=== PATIENT | male | born 1990 | race Caucasian/White ===

== ENCOUNTER 2017-03-08 20:06 | Emergency (ER) | payer OTHER ==
[~2017-03-08] VITALS: Wt 83.9 kg
[~2017-03-08 20:06] MED LIST: AMOXICILLIN500 MG PO; BACTRIM DS 8001 TA1 PO; CLINDAMYCIN HC300 MG PO; KEFLEX500 MG PO; MEDROL DOSEPAK4 MG PO; MOTRIN800 MG PO; MS CONTIN15 MG PO; MS CONTIN30 MG PO; NKHM; TRAMADOL HCL50 MG PO; TRIMOX500 MG PO; ULTRAM50 MG PO; VALIUM2 MG PO; VICODIN 5/500 505 MG PO; Vibra-Tab100 MG PO; ZITHROMAX250 MG PO
[2017-03-08 20:33] LABS: BASO % 0.2 % (0.0-1.0); EOS # 0.1 10*3/uL (0.0-0.4); HEMATOCRIT 39.2 % (42.0-52.0); HEMOGLOBIN 13.6 g/dl (14.0-18.0); LYMPH # 1.4 10*3/uL (1.3-4.4); LYMPH % 22.9 % (27.0-41.0); MEAN CELL VOLUME 86.2 fl (80.0-94.0); MEAN CORPUSCULAR HGB 29.9 pg (27.0-31.0); MEAN CORPUSCULAR HGB CONC 34.7 g/dl (33.0-37.0); MEAN PLATELET VOLUME 8.5 fl (9.6-12.3); MONO # 0.4 10*3/uL (0.1-1.0); MONO % 6.8 % (3.0-9.0); NEUT # 4.2 10*3/uL (2.3-7.9); NEUT % 68.9 % (47.0-73.0); PLATELET COUNT AUTOMATED 176 10*3/uL (130-400); RED BLOOD COUNT 4.55 10*6/uL (4.50-5.90); RED CELL DISTRI WIDTH 13.2 % (0-14.5); WHITE BLOOD COUNT 6.1 10*3/uL (4.8-10.8)
[2017-03-08 20:46] LABS: BILIRUBIN NEGATIVE (NEGATIVE); BLOOD NEGATIVE (NEGATIVE); CLARITY SL CLOUDY (CLEAR); COLOR YELLOW (YELLOW); GLUCOSE NEGATIVE (NEGATIVE); KETONE NEGATIVE (NEGATIVE); LEUKO ESTERASE NEGATIVE (NEGATIVE); NITRITE NEGATIVE (NEGATIVE); PROTEIN NEGATIVE (NEGATIVE); SPECIFIC GRAVITY 1.025 (1.005-1.030); UROBILINOGEN 0.2 E.U./dl (0.2-1.0)
[2017-03-08 20:51] LABS: ALBUMIN 3.8 gm/dl (3.1-4.5); ALKALINE PHOSPHATASE 117 U/L (45-117); BILIRUBIN, TOTAL 0.4 mg/dl (0.2-1.0); BUN 14 mg/dl (7-24); CARBON DIOXIDE 27 mmol/L (21-32); CHLORIDE 102 mmol/L (98-107); EST GLOM FILT AFRICAN AMERICAN > 60 ml/min; GLUCOSE 91 mg/dL (65-99); SGOT/AST 17 IU/L (3-35); SGPT/ALT 26 U/L (12-78); SODIUM 135 mmol/L (136-145); TOTAL PROTEIN 8.6 gm/dL (6.4-8.2)
[2017-03-08 20:54] LABS: BACTERIA TRACE; EPITHELIAL CELLS 0-2; HYALINE CAST 0-2; RBC 0-2 rbc/hpf (0-2)
[2017-03-08 20:55] LABS: URINE REFLEX COMMENT NO (NO)
[2017-03-08] MEDS ORDERED: Motrin,Rufen800 MG PO (22:47)
[2017-03-08] MEDS ORDERED: CYCLOBENZAPRINE5 M3 PO (22:47)
== END 2017-03-08 23:02 | disposition home or self-care (01) ==
LOC: ED 20:06
PROVIDERS: Physician Assistant
DX: R10.30 Lower abdominal pain, unspecified (principal); F17.200 Nicotine dependence, unspecified, uncomplicated

== ENCOUNTER 2017-10-17 16:53 | Inpatient (IN) | payer OTHER ==
[~2017-10-17] VITALS: Ht 170.1 cm; Wt 89.0 kg
[~2017-10-17 16:53] MED LIST changes: +CYCLOBENZAPRINE5 M3 PO; +Motrin,Rufen800 MG PO
[2017-10-17 16:54] VITALS: BP 163/77
[2017-10-17 17:08] LABS: BILIRUBIN NEGATIVE (NEGATIVE); BLOOD TRACE-INTACT (NEGATIVE); CLARITY CLEAR (CLEAR); COLOR YELLOW (YELLOW); GLUCOSE NEGATIVE (NEGATIVE); KETONE NEGATIVE (NEGATIVE); LEUKO ESTERASE NEGATIVE (NEGATIVE); NITRITE NEGATIVE (NEGATIVE); SPECIFIC GRAVITY 1.025 (1.005-1.030); UROBILINOGEN 0.2 E.U./dl (0.2-1.0)
[2017-10-17 17:17] LABS: URINE AMPHETAMINES > 1000 (1000ng/ml); URINE BARBITURATES < 200 (200ng/ml); URINE BENZODIAZEPINES < 200 (200ng/ml); URINE CANNABINOIDS (THC) > 50 (50ng/ml); URINE COCAINE > 300 (300ng/ml); URINE METHADONE < 300 (300ng/ml); URINE OPIATES > 300 (300ng/ml)
[2017-10-17 17:20] LABS: URINE PHENCYCLIDINE < 25 (25ng/ml)
[2017-10-17 17:21] LABS: BACTERIA 1+; EPITHELIAL CELLS 0-2; RBC 0-2 rbc/hpf (0-2); WBC 0-2 wbc/hpf (0-5)
[2017-10-17 17:22] LABS: MUCOUS TRACE
[2017-10-17 17:26] LABS: BASO % 0.2 % (0.0-1.0); EOS % 0.8 % (1.0-4.0); HEMATOCRIT 42.6 % (42.0-52.0); HEMOGLOBIN 14.2 g/dl (14.0-18.0); LYMPH # 1.1 10*3/uL (1.3-4.4); LYMPH % 22.5 % (27.0-41.0); MEAN CELL VOLUME 89.7 fl (80.0-94.0); MEAN CORPUSCULAR HGB 29.9 pg (27.0-31.0); MEAN CORPUSCULAR HGB CONC 33.3 g/dl (33.0-37.0); MEAN PLATELET VOLUME 9.1 fl (9.6-12.3); MONO # 0.4 10*3/uL (0.1-1.0); MONO % 8.3 % (3.0-9.0); NEUT # 3.4 10*3/uL (2.3-7.9); NEUT % 67.8 % (47.0-73.0); PLATELET COUNT AUTOMATED 151 10*3/uL (130-400); RED BLOOD COUNT 4.75 10*6/uL (4.50-5.90); RED CELL DISTRI WIDTH 13.5 % (0-14.5); WHITE BLOOD COUNT 4.9 10*3/uL (4.8-10.8)
[2017-10-17 17:35] VITALS: BP 142/79
[2017-10-17 17:41] LABS: ACETAMINOPHEN (TYLENOL) < 2.0 ug/ml (10-30); ALBUMIN 3.8 gm/dl (3.1-4.5); ALKALINE PHOSPHATASE 104 U/L (45-117); BUN 10 mg/dl (7-24); CHLORIDE 101 mmol/L (98-107); CREATININE 1.14 mg/dL (0.70-1.30); ETHYL ALCOHOL < 3.0 mg/dl (<3); POTASSIUM 3.7 mmol/L (3.5-5.1); SGOT/AST 18 IU/L (3-35); SGPT/ALT 25 U/L (12-78); SODIUM 137 mmol/L (136-145); TOTAL PROTEIN 8.8 gm/dL (6.4-8.2)
[2017-10-17 20:27] VITALS: BP 164/76
[2017-10-18 00:49] VITALS: BP 148/86
[2017-10-18 04:01] VITALS: BP 146/82
== END 2017-10-18 07:51 | disposition left against medical advice (07) | DRG 894 ==
LOC: ED 16:53 → 4E 17:19 → EDHOLD 17:19 → 4E 17:41
PROVIDERS: Internal Medicine Hospice and Palliative Medicine; Nurse Practitioner Family
DX: F11.23 Opioid dependence with withdrawal (principal); B18.2 Chronic viral hepatitis C; F13.239 Sedative, hypnotic or anxiolytic dependence with withdrawal, unspecified; D72.810 Lymphocytopenia; F41.1 Generalized anxiety disorder; R00.0 Tachycardia, unspecified; F17.200 Nicotine dependence, unspecified, uncomplicated; F14.10 Cocaine abuse, uncomplicated; F12.10 Cannabis abuse, uncomplicated; F15.10 Other stimulant abuse, uncomplicated; Z53.21 Procedure and treatment not carried out due to patient leaving prior to being seen by health care provider; Z71.6 Tobacco abuse counseling

== ENCOUNTER 2017-11-18 13:15 | Inpatient (IN) | payer OTHER ==
[~2017-11-18] VITALS: Ht 152.4 cm; Wt 80.5 kg
[2017-11-18 14:10] VITALS: BP 135/77
[2017-11-18 14:15] VITALS: BP 135/77
[2017-11-18 16:00] VITALS: BP 136/73
[2017-11-18 16:08] LABS: BILIRUBIN 1+ (NEGATIVE); BLOOD NEGATIVE (NEGATIVE); CLARITY CLEAR (CLEAR); COLOR YELLOW (YELLOW); GLUCOSE NEGATIVE (NEGATIVE); KETONE TRACE (NEGATIVE); LEUKO ESTERASE NEGATIVE (NEGATIVE); NITRITE NEGATIVE (NEGATIVE); SPECIFIC GRAVITY 1.025 (1.005-1.030)
[2017-11-18 16:21] LABS: BACTERIA TRACE; MUCOUS 1+; RBC 0-2 rbc/hpf (0-2)
[2017-11-18 16:31] LABS: URINE AMPHETAMINES < 1000 (1000ng/ml); URINE BARBITURATES > 200 (200ng/ml); URINE BENZODIAZEPINES < 200 (200ng/ml); URINE CANNABINOIDS (THC) < 50 (50ng/ml); URINE COCAINE > 300 (300ng/ml); URINE METHADONE < 300 (300ng/ml); URINE OPIATES < 300 (300ng/ml)
[2017-11-18 16:37] LABS: URINE PHENCYCLIDINE < 25 (25ng/ml)
[2017-11-18 19:23] LABS: BASO % 0.3 % (0.0-1.0); EOS % 0.5 % (1.0-4.0); HEMOGLOBIN 12.7 g/dl (14.0-18.0); LYMPH # 1.3 10*3/uL (1.3-4.4); LYMPH % 16.7 % (27.0-41.0); MEAN CELL VOLUME 86.8 fl (80.0-94.0); MEAN CORPUSCULAR HGB CONC 33.4 g/dl (33.0-37.0); MEAN PLATELET VOLUME 9.3 fl (9.6-12.3); MONO # 0.5 10*3/uL (0.1-1.0); MONO % 6.4 % (3.0-9.0); NEUT # 5.9 10*3/uL (2.3-7.9); NEUT % 75.7 % (47.0-73.0); PLATELET COUNT AUTOMATED 157 10*3/uL (130-400); RED BLOOD COUNT 4.38 10*6/uL (4.50-5.90); RED CELL DISTRI WIDTH 13.8 % (0-14.5); WHITE BLOOD COUNT 7.8 10*3/uL (4.8-10.8)
[2017-11-18 19:32] LABS: INTERNATIONAL NORM RATIO 1.1 (2.0-3.5)
[2017-11-18 19:39] LABS: ALBUMIN 3.1 gm/dl (3.1-4.5); ALKALINE PHOSPHATASE 124 U/L (45-117); BUN 9 mg/dl (7-24); CHLORIDE 103 mmol/L (98-107); CREATININE 1.05 mg/dL (0.70-1.30); ETHYL ALCOHOL < 3.0 mg/dl (<3); POTASSIUM 3.6 mmol/L (3.5-5.1); SGOT/AST 10 IU/L (3-35); SGPT/ALT 25 U/L (12-78); SODIUM 137 mmol/L (136-145); TOTAL PROTEIN 7.7 gm/dL (6.4-8.2)
[2017-11-18 20:00] VITALS: BP 140/67
[2017-11-19] VITALS (8 sets, daily range): BP systolic 97–140; BP diastolic 49–78
== END 2017-11-19 19:01 | disposition left against medical advice (07) | DRG 603 ==
LOC: 5E 13:15
PROVIDERS: Student in an Organized Health Care Education/Training Program
PROC: 0H9NXZZ Drainage of Left Foot Skin, External Approach (ICD-10-PCS; principal; 2017-11-19)
DX: L03.116 Cellulitis of left lower limb (principal); B19.20 Unspecified viral hepatitis C without hepatic coma; L02.612 Cutaneous abscess of left foot; F11.23 Opioid dependence with withdrawal; F13.239 Sedative, hypnotic or anxiolytic dependence with withdrawal, unspecified; F17.210 Nicotine dependence, cigarettes, uncomplicated; F41.1 Generalized anxiety disorder; D64.9 Anemia, unspecified; D72.810 Lymphocytopenia; R73.9 Hyperglycemia, unspecified; F12.10 Cannabis abuse, uncomplicated; F14.10 Cocaine abuse, uncomplicated; Z53.21 Procedure and treatment not carried out due to patient leaving prior to being seen by health care provider; Z71.6 Tobacco abuse counseling

== ENCOUNTER 2017-12-21 07:18 | Emergency (ER) | payer OTHER ==
[~2017-12-21] VITALS: Wt 84.8 kg
== END 2017-12-21 08:00 | disposition left against medical advice (07) ==
LOC: ED 07:18
DX: R07.81 Pleurodynia (principal); F41.9 Anxiety disorder, unspecified; R73.9 Hyperglycemia, unspecified; F41.1 Generalized anxiety disorder; F17.200 Nicotine dependence, unspecified, uncomplicated

== ENCOUNTER 2018-01-10 20:39 | Inpatient (IN) | payer OTHER ==
[~2018-01-10] VITALS: Ht 167.6 cm; Wt 83.9 kg
--- NOTE | ~2018-01-10 | PR ---
[place], [place] PROGRESS NOTE NAME: JD LANGE UNIT #: [id number] ROOM: 403 DOCTOR: LAINEY WADE,OCTOBER BIRTHDATE: [birth year] DOS: SUBJECTIVE: The patient is a 27-year-old male who is being followed for bilateral arm abscess due to IV drug abuse. The one abscess on his left arm drained spontaneously and cultures have grown group B strep. The right arm still has not drained. He is being followed by Dr. Viera with surgery. His blood cultures remained sterile. He was on oral antibiotics as an outpatient and failed oral antibiotics with doxycycline and Bactrim, a low-grade temperature up to 99.4, otherwise afebrile. States his arms feel better, is having less pain. No nausea or vomiting, no diarrhea. No rash or itch. No cough or shortness of breath. No shaking chills. No other new labs today. Cultures as reviewed above. OBJECTIVE: VITAL SIGNS: Temperature 98.5, pulse 65, respirations 16, BP 133/70. Vancomycin trough 7.5. GENERAL: A 27-year-old male, in no acute distress. HEENT: Normocephalic, no thrush. LUNGS: Clear to auscultation bilaterally. Respirations even and unlabored. HEART: Regular rhythm. No murmur appreciated. ABDOMEN: Soft, nondistended. EXTREMITIES: No lower extremity edema or deformity. Left upper extremity, a small amount of purulent discharge on the dressing much less in duration. No expressible discharge from the left arm abscess on the right arm. He has got an abscess above the antecubital, which remained somewhat large fluctuant. There is surrounding erythema though it seems less tender. He has many tattoos. Right IJ dressing dry and intact. SKIN: Otherwise, warm, dry and free of rashes. ASSESSMENT: Bilateral arm abscesses due to IV drug abuse. The left is drained spontaneously with group C strep growing from the wound. The right, has not yet drained and is being followed by Dr. Viera with surgery. PLAN: Narrow antibiotics to Rocephin. Ultrasound the right arm to further evaluate the abscess and check for septic phlebitis. Followup on further cultures. Case discussed with Dr. Greenfield. ADDENDUM I did discuss with the patient regarding HIV testing. He states he was recently tested and does not feel the need to be retested. He does have hepatitis C. SHERRILL RETANA CNP [place], [place] PROGRESS NOTE NAME: JD LANGE UNIT #: [id number] ROOM: 403 DOCTOR: LAINEY WADEOCTOBER BIRTHDATE: [birth year] Angie Greenfield MD CM:PNGAURAV [id number] SHERRILL RETANA CNP 01/12/18 1931 interface
--- NOTE | ~2018-01-10 | CON ---
[place], [place] REPORT OF CONSULTATION NAME: JD LANGE UNIT #: [id number] ROOM: 403 DOCTOR: LAINEY WADE,OCTOBER BIRTHDATE: [birth year] DOS: HISTORY OF PRESENT ILLNESS: The patient is a 27-year-old male who was admitted due to bilateral arm abscesses. He is an IV drug abuser who last shot up 5 or 6 days ago. He was recently at [facility] in [place], [place] for his opiate dependency and IV drug abuse. He was given doxycycline and Bactrim for cellulitis of his arms, they worsened and he developed spontaneous drainage from the left arm and upper arm abscess yesterday. The patient states that he has been seen by surgeon, Dr. Viera. He is currently on IV vancomycin. He has been at [facility] for approximately 5 days with worsening of his abscesses despite doxycycline and Bactrim. This is characteristic of MRSA abscesses. PAST MEDICAL HISTORY: As above as well as anxiety, hepatitis C, necrotizing fasciitis with infections previously due to IV drug abuse. SOCIAL HISTORY: Polysubstance abuser, heroin, benzodiazepines, cocaine, marijuana. He is a smoker, half pack per day for approximately 8 years. FAMILY MEDICAL HISTORY: Both parents alive in their 50s in good health. ALLERGIES: No known drug allergies. CURRENT MEDICATIONS: Folic acid, Toradol, Zosyn, Lovenox, vancomycin, Subutex, Claritin, Cepacol, Senokot, Requip, Zofran, Nicoderm, Robaxin, Ativan, Imodium, Vistaril, Bentyl, Maalox, Milk of Magnesia, Tylenol. LABORATORY DATA: WBC is 9.8, platelets 275. BUN 17, creatinine 1.04. LFTs within normal limits. Blood cultures remain sterile thus far. Cultures obtained from the left arm abscess with gram-positive cocci in pairs and chains. Cultures pending. REVIEW OF SYSTEMS: Alert and oriented. Denies fevers or chills. Does have some pain in bilateral arms where his abscesses are. No nausea, vomiting or diarrhea. No rash or itch. No cough or shortness of breath. No headache or dizziness. No chest pain or palpitations, heavily tattooed. Further review of systems unremarkable x 10. PHYSICAL EXAMINATION: VITAL SIGNS: Temperature 98.9, pulse 74, respirations 18, BP 131/64. GENERAL: A 27-year-old male in no acute distress, nontoxic in appearance. HEENT: Normocephalic, no thrush. LUNGS: Clear to auscultation bilaterally. Respirations even and unlabored. HEART: Regular rhythm. No murmur appreciated. ABDOMEN: Soft, nondistended, nontender. Positive bowel sounds. EXTREMITIES: Lower extremities unremarkable. Left upper extremity just proximal to the elbow, he has fluid filled fluctuant area with serosanguineous and purulent discharge. Tender with cellulitis of right arm. He has an area of a large scar just above the elbow. He has large erythematous area with little fluctuance. [place], [place] REPORT OF CONSULTATION NAME: JD LANGE UNIT #: [id number] ROOM: 403 DOCTOR: LAINEY WADEOCTOBER BIRTHDATE: [birth year] SKIN: Intact. ASSESSMENT AND PLAN: Bilateral upper extremity abscesses, likely due to MRSA, which oral therapy with doxycycline and Bactrim. This is very characteristic for MRSA abscesses, especially due to IV drug abuse as he will need to have I and D of both of these areas for adequate treatment. Continue the vancomycin, stop the Zosyn. Follow up on final cultures. Case discussed with Dr. Greenfield. OCTOBER MAURO RETANA Angie Greenfield MD CM:CONSTR:REPORT OF CONSULTATION 1823 03/10/18 1001 interface
--- NOTE | ~2018-01-10 | CON ---
[place], [place] REPORT OF CONSULTATION NAME: JD LANGE UNIT #: [id number] ROOM: 403 DOCTOR: NICHELLE GUTIÉRREZ MD BIRTHDATE: [birth year] DOS: 01/11/2018 This is the addendum to the consult note placed on 01/11/2018 for Infectious Disease. I agree with the assessment and plan made by the nurse practitioner, Yuly Hagan. I reviewed the labs and imaging and made the necessary changes. Angie Gutiérrez MD CM:CONSTR:REPORT OF CONSULTATION 1615 03/11/18 0117 interface
[2018-01-10 20:47] VITALS: BP 118/72
[2018-01-10] MEDS ORDERED: BUPRENORPHINE HY2 MG SL (20:50)
[2018-01-10] MEDS ORDERED: Vibra-Tab100 MG PO (20:50)
[2018-01-10] MEDS ORDERED: Bactrim 200 MG/30 ML PO (20:51)
[2018-01-10 21:45] VITALS: BP 120/72
[2018-01-10 23:00] VITALS: BP 116/74
[2018-01-11] VITALS (9 sets, daily range): BP systolic 107–136; BP diastolic 53–82
[2018-01-11 03:36] LABS: ALKALINE PHOSPHATASE 122 U/L (45-117); BUN 18 mg/dl (7-24); CHLORIDE 108 mmol/L (98-107); POTASSIUM 3.6 mmol/L (3.5-5.1); SGOT/AST 22 IU/L (3-35); SGPT/ALT 23 U/L (12-78); SODIUM 136 mmol/L (136-145); TOTAL PROTEIN 8.1 gm/dL (6.4-8.2)
[2018-01-11 03:46] LABS: BASO % 0.3 % (0.0-1.0); EOS # 0.2 10*3/uL (0.0-0.4); EOS % 1.9 % (1.0-4.0); HEMATOCRIT 38.1 % (42.0-52.0); HEMOGLOBIN 12.2 g/dl (14.0-18.0); LYMPH % 19.4 % (27.0-41.0); MEAN CELL VOLUME 87.6 fl (80.0-94.0); MONO # 0.6 10*3/uL (0.1-1.0); MONO % 6.4 % (3.0-9.0); NEUT # 7.2 10*3/uL (2.3-7.9); NEUT % 71.2 % (47.0-73.0); PLATELET COUNT AUTOMATED 270 10*3/uL (130-400); RED BLOOD COUNT 4.35 10*6/uL (4.50-5.90); RED CELL DISTRI WIDTH 14.3 % (0-14.5); WHITE BLOOD COUNT 10.1 10*3/uL (4.8-10.8)
[2018-01-11 03:46] LABS: BASO % 0.3 % (0.0-1.0); EOS # 0.2 10*3/uL (0.0-0.4); EOS % 1.9 % (1.0-4.0); HEMATOCRIT 38.9 % (42.0-52.0); HEMOGLOBIN 12.2 g/dl (14.0-18.0); LYMPH % 19.8 % (27.0-41.0); MEAN CELL VOLUME 87.6 fl (80.0-94.0); MEAN CORPUSCULAR HGB 27.5 pg (27.0-31.0); MEAN CORPUSCULAR HGB CONC 31.4 g/dl (33.0-37.0); MEAN PLATELET VOLUME 8.9 fl (9.6-12.3); MONO # 0.6 10*3/uL (0.1-1.0); MONO % 6.4 % (3.0-9.0); NEUT % 70.9 % (47.0-73.0); PLATELET COUNT AUTOMATED 275 10*3/uL (130-400); RED BLOOD COUNT 4.44 10*6/uL (4.50-5.90); RED CELL DISTRI WIDTH 14.4 % (0-14.5); WHITE BLOOD COUNT 9.8 10*3/uL (4.8-10.8)
[2018-01-11 03:56] LABS: ACT PARTIAL THROMBO TIME 23.8 SECONDS (20.8-31.5); INTERNATIONAL NORM RATIO 1.1 (2.0-3.5)
[2018-01-11 04:02] LABS: ALKALINE PHOSPHATASE 118 U/L (45-117); BUN 17 mg/dl (7-24); CHLORIDE 108 mmol/L (98-107); CHOLESTEROL 105 mg/dL (<200); CREATININE 1.04 mg/dL (0.70-1.30); HDL CHOLESTEROL 22 mg/dl (40-60); LDL CHOLESTEROL 53 mg/dL (9-159); PHOSPHOROUS 3.1 mg/dL (2.5-4.9); POTASSIUM 3.6 mmol/L (3.5-5.1); SGOT/AST 26 IU/L (3-35); SGPT/ALT 29 U/L (12-78); SODIUM 135 mmol/L (136-145); TRIGLYCERIDES 152 mg/dl (<150); VLDL CHOLESTEROL 30 mg/dL (6-40)
[2018-01-11] MEDS ORDERED: IBU800 M1 PO (05:13)
[2018-01-11] MEDS ORDERED: SEPTDS PO (05:14)
[2018-01-11] MEDS ORDERED: DAILY VALUE1 EACH PO (05:16)
[2018-01-11] MEDS ORDERED: CLARITIN10 MG PO (05:17)
[2018-01-11] MEDS ORDERED: BENADRYL ALLERG25 M5 PO (05:17)
[2018-01-11] MEDS ORDERED: CEPACOL SORE T1 EACH PO (05:18)
[2018-01-11] MEDS ORDERED: 'CLONIDINE0.1 MG PO (05:20)
[2018-01-11] MEDS ORDERED: ATARAX,VISTARIL50 MG PO (05:20)
[2018-01-11] MEDS ORDERED: ZOFRAN ODT4 MG PO (05:21)
[2018-01-11] MEDS ORDERED: IMODIUM A-D2 M2 PO (05:22)
[2018-01-11] MEDS ORDERED: COLACE100 MG PO (05:22)
[2018-01-11] MEDS ORDERED: BENTYL PO (05:23)
[2018-01-11] MEDS ORDERED: MYLICON, MYLANT80 MG PO (05:24)
[2018-01-11] MEDS ORDERED: TUMS200 MG PO (05:25)
[2018-01-11] MEDS ORDERED: MOM30 M1 PO (05:26)
[2018-01-11] MEDS ORDERED: BACLOFEN20 M1 PO (05:28)
[2018-01-11] MEDS ORDERED: TRAZODONE50 MG PO (05:30)
[2018-01-11] MEDS ORDERED: MELATONIN10 M2 PO (05:31)
[2018-01-11 07:36] LABS: VITAMIN D, 25-HYDROXY 30.5 ng/mL (30-100)
[2018-01-11 09:10] LABS: BILIRUBIN NEGATIVE (NEGATIVE); BLOOD NEGATIVE (NEGATIVE); CLARITY CLEAR (CLEAR); COLOR YELLOW (YELLOW); GLUCOSE NEGATIVE (NEGATIVE); KETONE NEGATIVE (NEGATIVE); LEUKO ESTERASE NEGATIVE (NEGATIVE); NITRITE NEGATIVE (NEGATIVE); PH 5.5 (5.0-9.0); SPECIFIC GRAVITY >= 1.030 (1.005-1.030); UROBILINOGEN 0.2 E.U./dl (0.2-1.0)
[2018-01-11 09:19] LABS: URINE AMPHETAMINES < 1000 (1000ng/ml); URINE BARBITURATES < 200 (200ng/ml); URINE BENZODIAZEPINES < 200 (200ng/ml); URINE CANNABINOIDS (THC) < 50 (50ng/ml); URINE COCAINE < 300 (300ng/ml); URINE METHADONE < 300 (300ng/ml); URINE OPIATES < 300 (300ng/ml)
[2018-01-11 09:21] LABS: URINE PHENCYCLIDINE < 25 (25ng/ml)
[2018-01-12] VITALS: BP 114/52
[2018-01-12 08:00] VITALS: BP 133/70
[2018-01-12 16:00] VITALS: BP 127/56
[2018-01-12 20:00] VITALS: BP 145/90
[2018-01-13 08:00] VITALS: BP 124/79
[2018-01-13 12:00] VITALS: BP 133/79
[2018-01-13 16:00] VITALS: BP 142/78
[2018-01-13 20:00] VITALS: BP 134/69
[2018-01-14] VITALS: BP 105/54; BP 123/70
[2018-01-14] MEDS ORDERED: DOXYCYCLINE100 M3 PO (05:44)
[2018-01-14 07:48] LABS: BASO % 0.5 % (0.0-1.0); EOS # 0.1 10*3/uL (0.0-0.4); EOS % 1.9 % (1.0-4.0); HEMATOCRIT 38.7 % (42.0-52.0); HEMOGLOBIN 12.2 g/dl (14.0-18.0); LYMPH # 1.3 10*3/uL (1.3-4.4); LYMPH % 22.6 % (27.0-41.0); MEAN CELL VOLUME 87.6 fl (80.0-94.0); MEAN CORPUSCULAR HGB 27.6 pg (27.0-31.0); MEAN CORPUSCULAR HGB CONC 31.5 g/dl (33.0-37.0); MEAN PLATELET VOLUME 8.9 fl (9.6-12.3); MONO # 0.4 10*3/uL (0.1-1.0); MONO % 6.8 % (3.0-9.0); NEUT % 67.3 % (47.0-73.0); PLATELET COUNT AUTOMATED 259 10*3/uL (130-400); RED BLOOD COUNT 4.42 10*6/uL (4.50-5.90); WHITE BLOOD COUNT 5.9 10*3/uL (4.8-10.8)
[2018-01-14 08:00] VITALS: BP 155/91
[2018-01-14] MEDS ORDERED: PHARMASSURE FO0.4 MG PO (08:03)
== END 2018-01-14 08:51 | disposition home or self-care (01) | DRG 603 ==
LOC: ED 20:39 → EDHOLD 22:06 → 4E 22:06
PROVIDERS: Internal Medicine; Internal Medicine Nephrology; Physician Assistant
PROC: 02HV33Z Insertion of Infusion Device into Superior Vena Cava, Percutaneous Approach (ICD-10-PCS; principal; 2018-01-11)
DX: L03.113 Cellulitis of right upper limb (principal); E87.8 Other disorders of electrolyte and fluid balance, not elsewhere classified; E44.0 Moderate protein-calorie malnutrition; F11.20 Opioid dependence, uncomplicated; E87.1 Hypo-osmolality and hyponatremia; L02.413 Cutaneous abscess of right upper limb; L03.114 Cellulitis of left upper limb; D72.810 Lymphocytopenia; E78.5 Hyperlipidemia, unspecified; F41.1 Generalized anxiety disorder; E53.8 Deficiency of other specified B group vitamins; R73.9 Hyperglycemia, unspecified; E78.1 Pure hyperglyceridemia; F17.210 Nicotine dependence, cigarettes, uncomplicated; E66.9 Obesity, unspecified; D53.9 Nutritional anemia, unspecified; E78.2 Mixed hyperlipidemia; B18.2 Chronic viral hepatitis C; B95.1 Streptococcus, group B, as the cause of diseases classified elsewhere; L02.414 Cutaneous abscess of left upper limb; Z71.6 Tobacco abuse counseling; Z79.899 Other long term (current) drug therapy; Z78.9 Other specified health status; Z82.49 Family history of ischemic heart disease and other diseases of the circulatory system; Z68.29 Body mass index [BMI] 29.0-29.9, adult

== ENCOUNTER 2019-01-20 20:57 | Emergency (ER) | payer OTHER ==
[~2019-01-20] VITALS: Ht 170.1 cm; Wt 83.0 kg
[~2019-01-20 20:57] MED LIST changes: +'CLONIDINE0.1 MG PO; +ATARAX,VISTARIL50 MG PO; +BACLOFEN20 M1 PO; +BENADRYL ALLERG25 M5 PO; +BENTYL PO; +BUPRENORPHINE HY2 MG SL; +Bactrim 200 MG/30 ML PO; +CEPACOL SORE T1 EACH PO; +CLARITIN10 MG PO; +COLACE100 MG PO; +DAILY VALUE1 EACH PO; +DOXYCYCLINE100 M3 PO; +IBU800 M1 PO; +IMODIUM A-D2 M2 PO; +MELATONIN10 M2 PO; +MOM30 M1 PO; +MYLICON, MYLANT80 MG PO; +PHARMASSURE FO0.4 MG PO; +SEPTDS PO; +TRAZODONE50 MG PO; +TUMS200 MG PO; +ZOFRAN ODT4 MG PO
[2019-01-20 21:53] LABS: BILIRUBIN NEGATIVE (NEGATIVE); BLOOD TRACE-INTACT (NEGATIVE); CLARITY SL CLOUDY (CLEAR); COLOR YELLOW (YELLOW); GLUCOSE NEGATIVE (NEGATIVE); KETONE NEGATIVE (NEGATIVE); LEUKO ESTERASE 1+ (NEGATIVE); NITRITE NEGATIVE (NEGATIVE); SPECIFIC GRAVITY 1.025 (1.005-1.030); UROBILINOGEN 0.2 E.U./dl (0.2-1.0)
[2019-01-20 22:01] LABS: BACTERIA 1+; WBC TNTC wbc/hpf (0-5)
[2019-01-23 16:04] LABS: GONOCOCCUS BY NAA Positive (Negative)
== END 2019-01-20 22:02 | disposition home or self-care (01) ==
LOC: ED 20:57
PROVIDERS: Nurse Practitioner Family
DX: Z11.3 Encounter for screening for infections with a predominantly sexual mode of transmission (principal); R36.9 Urethral discharge, unspecified; F17.200 Nicotine dependence, unspecified, uncomplicated; Z98.890 Other specified postprocedural states; Z79.899 Other long term (current) drug therapy

== ENCOUNTER 2019-07-03 22:17 | Emergency (ER) | payer OTHER ==
[~2019-07-03] VITALS: Ht 170.1 cm; Wt 81.6 kg
[2019-07-04 03:34] LABS: BACTERIA 2+; BILIRUBIN NEGATIVE (NEGATIVE); BLOOD 2+ (NEGATIVE); CLARITY SL CLOUDY (CLEAR); COLOR YELLOW (YELLOW); GLUCOSE NEGATIVE (NEGATIVE); KETONE NEGATIVE (NEGATIVE); LEUKO ESTERASE 2+ (NEGATIVE); NITRITE NEGATIVE (NEGATIVE); SPECIFIC GRAVITY 1.025 (1.005-1.030); UROBILINOGEN 0.2 E.U./dl (0.2-1.0); WBC TNTC wbc/hpf (0-5)
== END 2019-07-04 00:20 | disposition left against medical advice (07) ==
LOC: ED 22:17
PROVIDERS: Nurse Practitioner Family
DX: Z20.2 Contact with and (suspected) exposure to infections with a predominantly sexual mode of transmission (principal); E78.5 Hyperlipidemia, unspecified; E66.9 Obesity, unspecified; F17.200 Nicotine dependence, unspecified, uncomplicated; Z79.899 Other long term (current) drug therapy

== ENCOUNTER 2019-07-23 17:08 | Emergency (ER) | payer SELFPAY ==
[~2019-07-23] VITALS: Ht 170.1 cm; Wt 85.7 kg
[2019-07-23] MEDS ORDERED: AMOXICILLIN500 M2 PO (18:55)
[2019-07-23] MEDS ORDERED: FLONASE ALLERG9.9 ML NAS (18:55)
== END 2019-07-23 19:10 | disposition home or self-care (01) ==
LOC: ED 17:08
DX: J32.9 Chronic sinusitis, unspecified (principal); F17.200 Nicotine dependence, unspecified, uncomplicated; Z79.899 Other long term (current) drug therapy

== ENCOUNTER 2020-01-25 19:06 | Emergency (ER) | payer OTHER ==
[~2020-01-25] VITALS: Wt 83.9 kg
[~2020-01-25 19:06] MED LIST changes: +AMOXICILLIN500 M2 PO; +FLONASE ALLERG9.9 ML NAS
[2020-01-25] MEDS ORDERED: DOXYCYCLINE100 M3 PO (19:55)
[2020-01-25] MEDS ORDERED: DOXYCYCLINE100 MG PO (19:58)
== END 2020-01-25 20:07 | disposition home or self-care (01) ==
LOC: ED 19:06
DX: S80.262A Insect bite (nonvenomous), left knee, initial encounter (principal); E78.5 Hyperlipidemia, unspecified; F17.200 Nicotine dependence, unspecified, uncomplicated; Z79.899 Other long term (current) drug therapy; Z79.2 Long term (current) use of antibiotics; W57.XXXA Bitten or stung by nonvenomous insect and other nonvenomous arthropods, initial encounter; Y93.89 Activity, other specified; Y92.89 Other specified places as the place of occurrence of the external cause; Y99.8 Other external cause status

== ENCOUNTER → 2020-04-18 | Emergency (ER) | payer OTHER ==
[~2020-04-18] VITALS: Ht 170.1 cm; Wt 86.2 kg
[~2020-04-18] MED LIST changes: +DOXYCYCLINE100 MG PO
[2020-04-18 13:43] LABS: BASO % 0.4 % (0.0-1.0); EOS # 0.1 10*3/uL (0.0-0.4); EOS % 1.1 % (1.0-4.0); HEMATOCRIT 39.9 % (42.0-52.0); LYMPH # 1.9 10*3/uL (1.3-4.4); LYMPH % 34.3 % (27.0-41.0); MEAN CELL VOLUME 89.7 fl (80.0-94.0); MEAN CORPUSCULAR HGB 29.4 pg (27.0-31.0); MEAN CORPUSCULAR HGB CONC 32.8 g/dl (33.0-37.0); MEAN PLATELET VOLUME 8.7 fl (9.6-12.3); MONO # 0.3 10*3/uL (0.1-1.0); MONO % 5.4 % (3.0-9.0); NEUT # 3.2 10*3/uL (2.3-7.9); NEUT % 58.6 % (47.0-73.0); PLATELET COUNT AUTOMATED 213 10*3/uL (130-400); RED BLOOD COUNT 4.45 10*6/uL (4.50-5.90); RED CELL DISTRI WIDTH 12.7 % (0-14.5); WHITE BLOOD COUNT 5.4 10*3/uL (4.8-10.8)
[2020-04-18 13:54] LABS: ACT PARTIAL THROMBO TIME 29.1 SECONDS (20.0-32.1)
[2020-04-18 13:59] LABS: ALBUMIN 3.7 gm/dl (3.1-4.5); ALKALINE PHOSPHATASE 98 U/L (45-117); BUN 13 mg/dl (7-24); CHLORIDE 108 mmol/L (98-107); CREATININE 0.99 mg/dL (0.70-1.30); SGOT/AST 20 IU/L (3-35); SGPT/ALT 48 U/L (12-78); SODIUM 138 mmol/L (136-145); TOTAL PROTEIN 8.4 gm/dL (6.4-8.2)
[2020-04-18 14:00] LABS: TROPONIN I < 0.015 ng/ml (<0.045)
== END ==
LOC: ED 13:12
PROVIDERS: Emergency Medicine
DX: R07.89 Other chest pain (principal); Z53.21 Procedure and treatment not carried out due to patient leaving prior to being seen by health care provider